=== PATIENT | female | born 1985 | race Caucasian/White ===

== ENCOUNTER 2016-06-29 07:50 | Day surgery (SDC) | payer BC ==
[~2016-06-29] VITALS: Ht 167.6 cm; Wt 64.9 kg
[~2016-06-29 07:50] MED LIST: CLINDAMYCIN 600 mg/50mL D5W 50 ML IV ONE; DEPO-PROVERA IM
[2016-06-29] MEDS ORDERED: SEVOFLURANE 15 MIN GAS INH ONE (09:45)
[2016-06-29] MEDS ORDERED: fentaNYL CITRATE/PF 100 MCG/2 ML AMP IVP ONE (09:45)
[2016-06-29] MEDS ORDERED: PROPOFOL 200MG/ 20ML VIAL (DIPRIVAN) IV ONE (09:45)
[2016-06-29] MEDS ORDERED: ROCURONIUM BROMIDE 10 MG/ML (ZEMURON) IV ONE (09:45)
[2016-06-29] MEDS ORDERED: GLYCOPYRROLATE 0.2 MG/ML VIAL IJ ONE (09:45)
[2016-06-29] MEDS ORDERED: PHENYLEPHRINE HCL 10 MG/ML VIAL (NEOSYNEPHRINE) IV ONE (09:45)
[2016-06-29] MEDS ORDERED: MIDAZOLAM HCL 5 MG/5 ML VIAL IVP ONE (09:45)
[2016-06-29] MEDS ORDERED: ONDANSETRON HCL 4 MG/2 ML VIAL IVP ONE (09:45)
[2016-06-29] MEDS ORDERED: POLYMYXIN 500,000/BACIT.10,000 UNITS in NS IRR 1 L IR ONE (09:50)
[2016-06-29] MEDS ORDERED: LR 1,000 ML IV SCH (10:20)
[2016-06-29] MEDS ORDERED: D5/0.45 NS 1,000 ML IV SCH (10:30)
[2016-06-29] MEDS ORDERED: METOCLOPRAMIDE HCL 10 MG/2 ML VIAL IVP PRN (10:30)
[2016-06-29] MEDS ORDERED: T IVP PRN (10:30)
[2016-06-29] MEDS ORDERED: MORPHINE 4 MG/ML INJ. SYRINGE IVP PRN ×2 (10:30)
[2016-06-29] MEDS ORDERED: HYDROcodone/ACETAMIN 5-325 MG TAB (NORCO/ VICODIN) PO PRN ×2 (10:30)
[2016-06-29] MEDS ORDERED: HYDROmorphone 1 MG INJ. 1 MG/ML AMPUL IVP PRN (10:30)
[2016-06-29] MEDS ORDERED: HYDROcodone/ACETAMIN 5-325 MG TAB (NORCO/ VICODIN) ONE (11:37)
[2016-06-29 12:36] VITALS: BP_SYST 115
== END 2016-06-29 12:20 | disposition home or self-care (01) ==
LOC: SDS 07:50 → SMU 07:52 → SDS 12:20
PROVIDERS: ATTEND Colon & Rectal Surgery
DX: K42.0 Umbilical hernia with obstruction, without gangrene (principal)
CPT/HCPCS: 49587; C1781; J3490; J7120; J2250; J2370; J2405; J2704; J3010

== ENCOUNTER 2020-10-24 16:41 | Emergency (ER) | payer MEDICAID ==
[~2020-10-24] VITALS: Ht 167.6 cm; Wt 54.4 kg
[2020-10-24 16:41] VITALS: BP_SYST 108
[~2020-10-24 16:41] MED LIST changes: -CLINDAMYCIN 600 mg/50mL D5W 50 ML IV ONE
--- NOTE | 2020-10-24 16:41 | NUR ---
PT TO REMAIN IN ER LOBBY UNTIL ER BED BECOMES AVAILABLE.
--- NOTE | 2020-10-24 17:00 | NUR ---
PT AAO AND AMBULATORY REPORTING HAVING A RACING HEART THE PAST 2 DAYS. PT DENIES THE USE OF STIMULANTS. PT HAS NO SIGNIFICANT CARDIAC HISTORY. HR IS NOTED TO BE 106 CURRENTLY. PT DOES NOT APPEAR TO BE IN ANY DISTRESS.
--- NOTE | 2020-10-24 20:40 | NUR ---
DR. MAYEN TO TRIAGE TO ASSESS. PT PLACED ON MACHINE BURRER.
[2020-10-24] MEDS ORDERED: ATEN-41 PO (20:58)
[2020-10-24 21:04] VITALS: BP_SYST 108
--- NOTE | 2020-10-24 21:05 | NUR ---
Patient given written and verbal discharge instructions and verbalizes understanding. DR. TIARRA ALSTON MD discussed with patient the results and treatment provided. Patient in stable condition. ID arm band removed. Rx of ATENOLOL given. Patient educated on pain management and to follow up with PMD. Pain Scale 0/10. Opportunity for questions provided and answered. Medication side effect fact sheet provided.
== END 2020-10-24 21:05 | disposition home or self-care (01) ==
LOC: SED 16:41
DX: R00.0 Tachycardia, unspecified (principal); F15.90 Other stimulant use, unspecified, uncomplicated; Z88.0 Allergy status to penicillin
CPT/HCPCS: 99283

== ENCOUNTER 2023-02-14 01:57 | Emergency (ER) | payer BC, MEDICAID ==
[~2023-02-14] VITALS: Ht 167.6 cm; Wt 63.5 kg
[~2023-02-14 01:57] MED LIST changes: +ATEN-41 PO
[2023-02-14 02:00] VITALS: BP_SYST 118; PULSE 83; RESP 19; TEMP 97.6; O2SAT 100
[2023-02-14] MEDS ORDERED: methylPREDNISolone SOD SUCC/PF 62.5 MG/ML VIAL IM ONE (02:30)
[2023-02-14] MEDS ORDERED: LORA10TA7 PO (02:42)
[2023-02-14] MEDS ORDERED: PRED20TA PO (02:42)
[2023-02-14 03:00] VITALS: BP_SYST 118; PULSE 83; RESP 19; TEMP 97.6; O2SAT 100
== END 2023-02-14 03:00 | disposition home or self-care (01) ==
LOC: SED 01:57
DX: R21 Rash and other nonspecific skin eruption (principal); Z88.0 Allergy status to penicillin; Z79.899 Other long term (current) drug therapy
CPT/HCPCS: 99283; 96372; J2930

== ENCOUNTER 2023-11-12 07:17 | Emergency (ER) | payer BC, MEDICAID ==
[~2023-11-12] VITALS: Ht 167.6 cm; Wt 74.4 kg
[~2023-11-12 07:17] MED LIST changes: +LORA10TA7 PO; +PRED20TA PO
[2023-11-12 07:30] VITALS: BP_SYST 124; PULSE 89; RESP 15; TEMP 98.5; O2SAT 99
[2023-11-12] MEDS ORDERED: DOXY100C5 PO (07:39)
[2023-11-12 08:00] VITALS: BP_SYST 124; PULSE 89; RESP 15; TEMP 98.5; O2SAT 99
== END 2023-11-12 08:00 | disposition home or self-care (01) ==
LOC: SED 07:17
DX: L73.2 Hidradenitis suppurativa (principal); Z88.0 Allergy status to penicillin; Z79.899 Other long term (current) drug therapy; Z79.2 Long term (current) use of antibiotics
CPT/HCPCS: 99283

== ENCOUNTER 2023-12-24 07:19 | Emergency (ER) | payer BC ==
[~2023-12-24] VITALS: Ht 167.6 cm; Wt 72.6 kg
[~2023-12-24 07:19] MED LIST changes: +DOXY100C5 PO
[2023-12-24 07:34] VITALS: BP_SYST 122; PULSE 111; RESP 18; TEMP 96.3; O2SAT 99
[2023-12-24 09:29] VITALS: BP_SYST 122; PULSE 111; RESP 18; TEMP 96.3; O2SAT 99
[2023-12-24] MEDS: ONDANSETRON 4 MG ODT TAB PO ONE (09:51)
[2023-12-24 10:03] LABS: BASOPHILS % (AUTO) 0.4 % (0.0-2.0); EOSINOPHILS % (AUTO) 0.9 % (0.0-4.0); HEMATOCRIT 41.7 % (36-48); HEMOGLOBIN 13.7 g/dL (12.0-16.0); LYMPHOCYTES # (AUTO) 0.9 K/uL (1.0-5.5); LYMPHOCYTES % (AUTO) 19.1 % (20.5-51.5); MEAN CORPUSCULAR HEMOGLOBIN 28 pg (27-31); MEAN CORPUSCULAR HGB CONC 33 % (32-36); MEAN CORPUSCULAR VOLUME 85 fL (79.0-98.0); MONOCYTES # (AUTO) 0.4 K/uL (0.0-1.0); MONOCYTES % (AUTO) 9.8 % (1.7-9.3); NEUTROPHILS # (AUTO) 3.1 K/uL (1.8-7.7); NEUTROPHILS % (AUTO) 69.8 % (40.0-70.0); PLATELET COUNT (AUTO) 239 K/uL (130-430); RED BLOOD CELL COUNT(AUTO) 4.93 MIL/uL (4.2-6.2); RED CELL DISTRIBUTION WIDTH 13.8 % (9.0-15.0); WHITE BLOOD COUNT (AUTO) 4.5 K/uL (4.8-10.8)
[2023-12-24 10:20] LABS: SERUM HCG (QUALITATIVE) NEGATIVE (NEGATIVE)
[2023-12-24] MEDS: NACL 0.9% 1,000 ML IV ONE (10:36)
[2023-12-24 10:41] LABS: ANION GAP 9 (5-15); CALCIUM 8.8 mg/dL (8.4-11.0); CARBON DIOXIDE 29 mmol/L (23-29); CHLORIDE 99 mmol/L (98-107); CREATININE 1.03 mg/dL (0.55-1.30); GFR AFRICAN AMERICAN 78 mL/min (>90); GFR NON AFRICAN-AMERICAN 64 mL/min (>90); GLUCOSE 113 mg/dL (74-106); POTASSIUM 3.8 mmol/L (3.5-5.1); SODIUM SERUM 137 mmol/L (136-145); TOTAL BILIRUBIN 0.2 mg/dL (0.0-1.0); UREA NITROGEN, BLOOD 10 mg/dL (8-21)
[2023-12-24 10:42] LABS: ALANINE AMINOTRANSFERASE 24 U/L (12-78); ALBUMIN 3.5 g/dL (3.4-4.8); ASPARTATE AMINOTRANSFERASE 20 U/L (10-37); BILIRUBIN,DIRECT 0.1 mg/dL (0.0-0.3); TOTAL PROTEIN, SERUM 7.7 g/dL (6.4-8.3)
[2023-12-24 10:43] LABS: AMYLASE 40 U/L (0-100); LIPASE 24 U/L (16-77)
[2023-12-24 10:45] LABS: PROTHROMBIN TIME 10.4 SECS (9.5-12.5)
[2023-12-24] MEDS ORDERED: IBUP-1969 PO (11:00)
[2023-12-24] MEDS ORDERED: ONDA-8 TL (11:00)
[2023-12-24 11:12] LABS: ACETONE, SERUM NEGATIVE (NEGATIVE)
== END 2023-12-24 11:56 | disposition home or self-care (01) ==
LOC: SED 07:19
DX: A05.9 Bacterial foodborne intoxication, unspecified (principal); R11.2 Nausea with vomiting, unspecified; R10.30 Lower abdominal pain, unspecified; Z88.0 Allergy status to penicillin; Z79.52 Long term (current) use of systemic steroids; Z79.3 Long term (current) use of hormonal contraceptives
CPT/HCPCS: 99284; 74176; 96360; 80076; 80048; 82009; 82150; 84703; 83690; 85025; 85610; 85730; 36415; 81025; 83605; 82397; Q0162; J7030